=== PATIENT | male | born 1965 | race Caucasian/White ===

== ENCOUNTER → 2020-12-04 11:32 | Outpatient (BNVA) | payer OTHER, SELFPAY | PROVIDERS: Visit Provider Surgery | DX: Z12.11 Encounter for screening for malignant neoplasm of colon (principal); Z20.822 Contact with and (suspected) exposure to COVID-19 | CPT/HCPCS: 87635 ==

== ENCOUNTER 2020-12-08 06:32 | Day surgery (SDC) | payer OTHER, SELFPAY ==
[2020-12-04 10:59] VITALS: BMI 26.7
[2020-12-08 06:40] VITALS: BP 131/88; PULSE 75; RESP 18; TEMP 36.6
[2020-12-08] MEDS: sodium chloride 0.9% 1,000 ML 30 ML IV (06:54)
--- NOTE | 2020-12-08 07:06 | ANES.PREANE2 ---
Pre-Anesthetic Assessment Pre-Anesthetic Assessment: Height/Weight: Height 1.93 m Weight 99.79 kg Temp Pulse Resp BP 97.8 F 75 18 131/88 12/08/20 06:40 12/08/20 06:40 12/08/20 06:40 12/08/20 06:40 Preop Diagnosis: screening colonoscopy Proposed Procedure: Operation Date: 12/08/20 07:30 Proposed Procedures p Colonoscopy 16322 z12.11(Not Applicable) - Monty Brennan MD Was Beta Jessica taken within 24 hours: N/A Was Clonidine taken within 24 hours: N/A Last intake: Intake Last Liquid Date 12/07/20 Last Liquid Time 20:00 Last Solid Date 12/06/20 Last Solid Time 18:00 Social: Social History: Alcohol and No tobacco Exam: Pre-Anes Outpt Exam: alert, oriented x 3 and clear to auscultation bilaterally Airway: Submandibular: WNL Cervical ROM: WNL MP: 2 Dentition: Full History/ROS: No significant history except as noted Pulmonary: Pulmonary: None reported CV/HEM: CV/HEM: None reported : : None reported Hepatic: Hepatic: None reported GI: GI: None reported Metabolic: Metabolic: None reported Musc/skel: Musc/skel: None reported Neuropsych: Neuropsych: None reported Anesthetic Plan: ASA status: 2 Risk of > 500 ml blood loss (7ml/kg in children): No Meds/Allergies Current Medications: Current Medications Generic Name Dose Route Start Last Admin Trade Name Freq PRN Reason Stop Dose Admin Sodium Chloride 1,000 mls @ 30 ml s/hr 12/08/20 06:45 12/08/20 06:54 Sodium Chloride 0.9% IV 12/09/20 06:44 30 mls/hr .Q24H SOLOMON Administration Data Anesthesia Cardiac Studies: No Data to Display
--- NOTE | 2020-12-08 07:07 | P.HP_ITS ---
Same Day Surgery H&P Indication for Procedure/HPI DATE OF PROCEDURE: December 08, 2020 CHIEF COMPLAINT/INDICATIONFOR SURGICAL PROCEDURE: screening colonoscopy PREOP DIAGNOSIS: screening colonoscopy PLANNED PROCEDRUE: Operation Date: 12/08/20 07:30 Proposed Procedures p Colonoscopy 59375 z12.11(Not Applicable) - Monty Brennan MD Medications/Allergies* Home Medications Medication Instructions Recorded Confirmed Type No Known Home Medications 11/13/20 12/04/20 History Allergies/Adverse Reactions Allergy/AdvReac Type Severity Reaction Status Date / Time No Known Allergies Allergy Verified 12/08/20 06:48 Current Medications: Generic Name Dose Route Start Last Admin Trade Name Freq PRN Reason Stop Dose Admin Sodium Chloride 1,000 mls @ 30 mls/hr 12/08/20 06:45 12/08/20 06:54 Sodium Chloride 0.9% IV 12/09/20 06:44 30 mls/hr .Q24H SOLOMON Administration Pertinent Exam Findings alert, oriented x 3 and regular rate & rhythm Recommendations Surgery/Procedure today Coding Level of Care Code Acute Long Term Care Pharmacist for Dony Jha
[2020-12-08 07:33] VITALS: BP 123/78; PULSE 72; RESP 16; TEMP 36.3; O2SAT 96
[2020-12-08 07:52] VITALS: BP 134/90; PULSE 68; RESP 18; TEMP 36.4; O2SAT 98
--- NOTE | 2020-12-08 08:55 | ANE.PACU2 ---
Inpatient post-anesthesia follow up: Airway intact: Yes Vital signs: Temperature 97.5 F Pulse Rate 68 Respiratory Rate 18 Blood Pressure 134/90 Pulse Oximetry 98 Oxygen Delivery Me thod Room Air Oxygen Flow Rate Fraction of Inspir ed Oxygen Hydration adequate: Yes Mental status: Baseline
== END 2020-12-08 08:05 | disposition home or self-care (01) ==
PROVIDERS: Visit Provider Surgery
PROC: 0DJD8ZZ Inspection of Lower Intestinal Tract, Via Natural or Artificial Opening Endoscopic (ICD-10-PCS; CPT 45378; principal; 2020-12-08 07:30)
DX: Z12.11 Encounter for screening for malignant neoplasm of colon (principal); D12.2 Benign neoplasm of ascending colon; K64.8 Other hemorrhoids
CPT/HCPCS: 45380; 88305; 96360; J2704; J7030